=== PATIENT | female | born 1930 | race Caucasian/White ===

== ENCOUNTER → 2016-10-17 | Day surgery (SDC) | payer OTHER ==
[~2016-10-17] MED LIST: ACETAMINOPHEN/HYDROcodone 325 MG/5 MG TAB ONE; ALPR.25 PO; BUPIVACAINE/EPINEPHRINE 0.25% 50 ML VIAL ONE; BUPIVACAINE/EPINEPHRINE 0.25% PF 30 ML VIAL ONE; DONE10TA14; IBUP400 PO; KETOROLAC TROMETHAMINE 30 MG/ML (IVP) VIAL IV PUSH ONE; LACTATED RINGER'S 1000 ML INJ 1,000 ML ONE; LEVO.025 PO; MECL-62 PO; MECL25 PO; ONDANSETRON HCL 4 MG/2 ML VIAL IV PUSH ONE; PROPOFOL 200 MG/20 ML AMP IV ONE; ceFAZolin 2 GM PREMIX 50 ML ONE
--- NOTE | 2016-10-18 09:03 | MP ---
cc: OMARI GENTILE M.D. DATE OF SURGERY: 10/17/2016 PREOPERATIVE DIAGNOSIS Right hip painful retained internal fixation, three large Synthes cannulated screws. POSTOPERATIVE DIAGNOSIS Right hip painful retained internal fixation, three large Synthes cannulated screws. PROCEDURE Right hip exploration and removal of three large cannulated screws using direct visualization and fluoroscopy. ANESTHESIA General. SURGEON Omari Gentile MD DRYING CAN WORKER SURGEON AFRICA Shearer ESTIMATED BLOOD LOSS Less than 50 cc. DRAINS None. SPECIMENS Screws to be cleaned and given to the patient. COMPLICATIONS None known. INDICATION Jessica Sullivan as an 86-year-old female who previously underwent surgical repair of her right hip. She has lateral based hip pain which is believed to be secondary to the retained internal fixation which are prominent by probably up to 1/2 inch. Surgical technique described, risks and benefits thoroughly discussed. All of her questions were answered. Detailed informed consent was obtained. DETAILS OF PROCEDURE The patient was brought into the operating room, placed under general anesthetic. She was turned 30 degrees with a bump under her right shoulder blade and right hip. The right hip was draped and prepped in the usual sterile fashion. We completed our timeout. It should be noted that the periodontal assistant, Paulo Rivero, is an advanced registered nurse practitioner, and his skill set was medically necessary for the performance of the operation. He assisted by retracting vital structures and retracting the fascia to allow for visualization of the screws and removal of these complex screws. After the timeout was completed, we proceeded with fluoroscopic evaluation to see if the incision lined up with the screws and we used the top half of the incision, approximately 4 cm in length, and then proceeded to traverse using meticulous hemostasis with electrocautery all the way down to the fascial layer. We had good visualization of the fascia. We palpated directly over the most prominent screw and then traversed the fascial layer and then identified the screw head and used the cannulated guidewire and then the screwdriver over this with fluoroscopic guidance to remove this screw. In a similar fashion we turned the internal and external rotation of the hip until we were able to identify the next screw head and retracted the fascia out of the way until we were able to visualize and place the guide pin down the screw and then remove this screw. There was no significant fluid identified with removal of this. Then we opened the fascia layer and abducted the hip somewhat to gain access to the third screw and then removed this screw in a similar fashion and made a hard copy of the hip showing the final result. We then irrigated out with copious amounts of irrigation and proceeded to close the fascial layer and then proceeded to closed in layers with absorbable sutures, subcuticular on the skin. Steri-Strips applied. Sterile dressing applied. The patient was awoken and returned to the recovery room in stable condition. MD ANAYELI Doyle/LEILA /12:43 PM /8:56 AM
== END | disposition home or self-care (01) ==
LOC: ESDC 09:58
PROVIDERS: ATTEND Orthopaedic Surgery Sports Medicine
DX: T84.84XA Pain due to internal orthopedic prosthetic devices, implants and grafts, initial encounter (principal)
CPT/HCPCS: 01210; 20680; 73501; 76000; J0690; J1885; J2405; J3010; J7120

== ENCOUNTER 2018-01-30 04:15 | Emergency (ER) | payer OTHER ==
[~2018-01-30 04:15] MED LIST changes: -ACETAMINOPHEN/HYDROcodone 325 MG/5 MG TAB ONE; -BUPIVACAINE/EPINEPHRINE 0.25% 50 ML VIAL ONE; -BUPIVACAINE/EPINEPHRINE 0.25% PF 30 ML VIAL ONE; -KETOROLAC TROMETHAMINE 30 MG/ML (IVP) VIAL IV PUSH ONE; -LACTATED RINGER'S 1000 ML INJ 1,000 ML ONE; -ONDANSETRON HCL 4 MG/2 ML VIAL IV PUSH ONE; -PROPOFOL 200 MG/20 ML AMP IV ONE; -ceFAZolin 2 GM PREMIX 50 ML ONE
[2018-01-30 04:24] VITALS: PULSE 92; RESP 16; O2SAT 97
[2018-01-30] MEDS ORDERED: LORazepam 2 MG/ML VIAL IV PUSH ONE (04:30)
[2018-01-30] MEDS ORDERED: ONDANSETRON HCL 4 MG/2 ML VIAL IV PUSH ONE (04:30)
[2018-01-30] MEDS ORDERED: SODIUM CHLOR 0.9% 1000 ML INJ 1,000 ML IV SCH (04:30)
--- NOTE | 2018-01-30 04:32 | PD ---
HPI Chief Complaint: Chest Pain Time Seen by Provider: 04:24 Travel History International Travel<30 days: No Contact w/Intl Traveler<30days: No Traveled to known affect area: No History of Present Illness HPI 87 years old female was brought in by her daughter for nausea vomiting coughing congestion. Patient's daughter states that the symptoms started 2 days ago. Patient's daughters state that the symptom worse tonight. Patient has history of dementia. Patient's daughter reported no fever at home. Patient's daughter states that she has intermittent productive cough and intermittent nausea vomiting. Patient occasionally complained of left-sided chest wall pain. Patient reported no history of hypertension, diabetes, hyperlipidemia. Patient' s daughter states that patient does not have any history of CAD. PFSH Past Medical History Hx Anticoagulant Therapy: No Cancer: No Cardiovascular Problems: No Chemotherapy: No Cerebrovascular Accident: No Diabetes: No Diminished Hearing: Yes Endocrine: Yes Genitourinary: No Immune Disorder: No Musculoskeletal: No Neurologic: No Reproductive: No Respiratory: No Immunizations Current: No Sickle Cell Disease: No Thyroid Disease: Yes (HYPOTHYROIDISM) : 3 Para: 3 Past Surgical History Hysterectomy: Yes Other Surgery: Yes (Bunionectomy) Social History Alcohol Use: No Tobacco Use: No Substance Use: No Allergies-Medications (Allergen,Severity, Reaction): Coded Allergies: No Known Allergies (Verified Adverse Reaction, Unknown, 01/30/18) Reported Meds & Prescriptions Reported Meds & Active Scripts Active Reported Ventolin Hfa 18 GM Inh (Albuterol Sulfate) 90 Mcg/Act Aer 1 Puff INH Q4H PRN Hydrocodone-Acetaminophen 5-325 mg Tab 1 Tab PO Q4H PRN Meclizine (Meclizine HCl) 12.5 Mg Tab 12.5 Mg PO TID PRN Donepezil 10 Mg Tab 10 Mg PO HS Levothyroxine (Levothyroxine Sodium) 75 Mcg Tab 75 Mcg PO DAILY Zoloft (Sertraline HCl) 50 Mg Tab 50 Mg PO DAILY Review of Systems General / Constitutional: No: Fever Eyes: No: Visual changes HENT: Positive: Congestion, No: Headaches Cardiovascular: No: Chest Pain or Discomfort Respiratory: Positive: Cough, No: Shortness of Breath Gastrointestinal: Positive: Nausea, Vomiting, No: Abdominal Pain Genitourinary: No: Dysuria Musculoskeletal: No: Pain Skin: No Rash Neurologic: No: Weakness Psychiatric: No: Depression Endocrine: No: Polydipsia Hematologic/Lymphatic: No: Easy Bruising Physical Exam Narrative GENERAL: Well-nourished, well-developed patient. SKIN: Focused skin assessment warm/dry. HEAD: Normocephalic. EYES: No scleral icterus. No injection or drainage. NECK: Supple, trachea midline. No JVD or lymphadenopathy. CARDIOVASCULAR: Regular rate and rhythm without murmurs, gallops, or rubs. RESPIRATORY: Breath sounds equal bilaterally. No accessory muscle use. GASTROINTESTINAL: Abdomen soft, non-tender, nondistended. MUSCULOSKELETAL: No cyanosis, or edema. BACK: Nontender without obvious deformity. No CVA tenderness. Neurologic exam: Patient is awake and alert. Patient is agitated. Patient moves all extremity well. No obvious focal neurological deficit. Data Data Last Documented VS Vital Signs Date Time Temp Pulse Resp B/P (MAP) Pulse Ox O2 Delivery O2 Flow Rate FiO2 01/30/18 04:44 98 Room Air 01/30/18 04:43 78 16 Orders Orders Electrocardiogram (01/30/18 04:24) Complete Blood Count With Diff (01/30/18 04:24) Comprehensive Metabolic Panel (01/30/18 04:24) B-Type Natriuretic Peptide (01/30/18 04:24) Prothrombin Time / Inr (Pt) (01/30/18 04:24) Act Partial Throm Time (Ptt) (01/30/18 04:24) Urinalysis - C+S If Indicated (01/30/18 04:24) Thyroid Stimulating Hormone (01/30/18 04:24) Influenzae A/B Antigen (01/30/18 04:24) Chest, Single Ap (01/30/18 04:24) Iv Access Insert/Monitor (01/30/18 04:24) Ecg Monitoring (01/30/18 04:24) Oximetry (01/30/18 04:24) Lorazepam Inj (Ativan Inj) (01/30/18 04:30) Ondansetron Inj (Zofran Inj) (01/30/18 04:30) Sodium Chlor 0.9% 1000 Ml Inj (Ns 1000 M (01/30/18 04:30) Creatine Kinase (Cpk) (01/30/18 04:29) Troponin I (01/30/18 04:29) Ed Discharge Order (01/30/18 06:10) Labs Laboratory Tests Test 01/30/18 04:30 01/30/18 05:30 White Blood Count 7.8 TH/MM3 Red Blood Count 4.87 MIL/MM3 Hemoglobin 14.8 GM/DL Hematocrit 43.7 % Mean Corpuscular Volume 89.7 FL Mean Corpuscular Hemoglobin 30.4 PG Mean Corpuscular Hemoglobin Concent 33.9 % Red Cell Distribution Width 14.2 % Platelet Count 200 TH/MM3 Mean Platelet Volume 8.1 FL Neutrophils (%) (Auto) 56.0 % Lymphocytes (%) (Auto) 33.4 % Monocytes (%) (Auto) 8.4 % Eosinophils (%) (Auto) 1.1 % Basophils (%) (Auto) 1.1 % Neutrophils # (Auto) 4.4 TH/MM3 Lymphocytes # (Auto) 2.6 TH/MM3 Monocytes # (Auto) 0.7 TH/MM3 Eosinophils # (Auto) 0.1 TH/MM3 Basophils # (Auto) 0.1 TH/MM3 CBC Comment DIFF FINAL Differential Comment Prothrombin Time 10.3 SEC Prothromb Time International Ratio 1.0 RATIO Activated Partial Thromboplast Time 23.2 SEC Blood Urea Nitrogen 17 MG/DL Creatinine 1.02 MG/DL Random Glucose 102 MG/DL Total Protein 8.0 GM/DL Albumin 4.0 GM/DL Calcium Level 9.6 MG/DL Alkaline Phosphatase 79 U/L Aspartate Amino Transf (AST/SGOT) 26 U/L Alanine Aminotransferase (ALT/SGPT) 25 U/L Total Bilirubin 0.4 MG/DL Sodium Level 140 MEQ/L Potassium Level 3.3 MEQ/L Chloride Level 103 MEQ/L Carbon Dioxide Level 24.4 MEQ/L Anion Gap 13 MEQ/L Estimat Glomerular Filtration Rate 51 ML/MIN Total Creatine Kinase 123 U/L Troponin I LESS THAN 0.02 NG/ML B-Type Natriuretic Peptide 50 PG/ML Thyroid Stimulating Hormone 3rd Gen 1.260 uIU/ML Urine Color LIGHT-YELLOW Urine Turbidity CLEAR Urine pH 8.0 Urine Specific [place] 1.008 Urine Protein TRACE mg/dL Urine Glucose (UA) NEG mg/dL Urine Ketones 40 mg/dL Urine Occult Blood NEG Urine Nitrite NEG Urine Bilirubin NEG Urine Urobilinogen LESS THAN 2.0 MG/DL Urine Leukocyte Esterase NEG Urine RBC 1 /hpf Urine WBC LESS THAN 1 /hpf Microscopic Urinalysis Comment CULT NOT INDICATED MDM Medical Decision Making Medical Screen Exam Complete: Yes Emergency Medical Condition: Yes Interpretation(s) 5:45 AM. EKG shows sinus rhythm nonspecific ST-T wave change. Last Impressions Chest X-Ray 01/30/18 0424 Signed Impressions: Service Date/Time: Tuesday, January 30, 2018 04:46 - CONCLUSION: 1. Large hernia in the lower chest containing bowel. Findings similar to 2015. No acute infiltrate. Allan Grande MD 5:45 AM. CBC within normal limits. Potassium 3.3. Creatinine 1.02. GFR 51. Cardiac enzymes are normal. UA is negative. Differential Diagnosis Differential diagnosis including viral syndrome, gastroenteritis, dehydration, electrolyte imbalance, chest wall pain, pneumonia, NC. Narrative Course 87 years old female was brought in by her daughter for coughing congestion, nausea vomiting. Normal saline solution 100 cc an hour. Ativan 1 mg IV. Zofran 4 mg IV. Diagnosis Primary Impression: Viral syndrome Patient Instructions: General Instructions Additional Instructions: Zofran as needed for nausea vomiting. Tylenol as needed for aching pain. Follow-up with personal physician. Return if worse. Med/Other Pt SpecificInfo: Prescription(s) given Scripts Ondansetron Odt (Zofran Odt) 4 Mg Tab 4 MG SL Q6HR Y for Nausea/Vomiting, #10 TAB 0 Refills Prov: Len Santoyo MD 01/30/18 Disposition: 01 DISCHARGE HOME Condition: Stable Len Santoyo MD Jan 30, 2018 04:32
[2018-01-30] MEDS ORDERED: HYDR-3516 PO (04:41)
[2018-01-30] MEDS ORDERED: LEVO75TA3 PO (04:41)
[2018-01-30] MEDS ORDERED: MECL12.574 PO (04:41)
[2018-01-30] MEDS ORDERED: ZOLO50TA PO (04:41)
[2018-01-30] MEDS ORDERED: DONE10TA7 PO (04:41)
[2018-01-30 04:42] LABS: AUTOMATED NEUTROPHIL # 4.4 TH/MM3 (1.8-7.7); BASOPHIL # 0.1 TH/MM3 (0-0.2); BASOPHIL % 1.1 % (0.0-2.0); EOSINOPHIL # 0.1 TH/MM3 (0-0.4); EOSINOPHIL % 1.1 % (0.0-4.0); HEMATOCRIT 43.7 % (35.0-46.0); HEMOGLOBIN 14.8 GM/DL (11.6-15.3); LYMPH % 33.4 % (9.0-44.0); LYMPHOCYTE # 2.6 TH/MM3 (1.0-4.8); MEAN CELL VOLUME 89.7 FL (80.0-100.0); MEAN CORPUSCULAR HEMOGLOBIN 30.4 PG (27.0-34.0); MEAN CORPUSCULAR HGB CONC 33.9 % (32.0-36.0); MEAN PLATELET VOLUME 8.1 FL (7.0-11.0); MONO % 8.4 % (0.0-8.0); MONOCYTE # 0.7 TH/MM3 (0-0.9); PLATELET COUNT 200 TH/MM3 (150-450); RED BLOOD COUNT 4.87 MIL/MM3 (4.00-5.30); RED CELL DISTRIBUTION WIDTH 14.2 % (11.6-17.2); WHITE BLOOD COUNT 7.8 TH/MM3 (4.0-11.0)
[2018-01-30] MEDS ORDERED: VENTAER INH (04:42)
[2018-01-30 04:43] VITALS: BP 180/79; PULSE 78; RESP 16; O2SAT 98
[2018-01-30 04:44] VITALS: O2SAT 98
[2018-01-30 04:58] LABS: PROTHROMBIN TIME - PATIENT 10.3 SEC (9.8-11.6)
[2018-01-30 05:00] LABS: TROPONIN I LESS THAN 0.02 NG/ML (0.02-0.05)
--- NOTE | 2018-01-30 05:02 | RADRPT ---
EXAM DATE/TIME: 01/30/2018 04:46 [facility] COMPARISON: CHEST SINGLE AP, January 30, 2015, 22:47. INDICATIONS : Short of breath. MEDICAL HISTORY : None. SURGICAL HISTORY : None. ENCOUNTER: Initial ACUITY: 1 day PAIN SCORE: 0/10 LOCATION: Bilateral chest FINDINGS: A single view of the chest demonstrates persistent large hernia in the lower chest. Probable compress randy atelectasis on the left side. Right lung clear. No pneumothorax. CONCLUSION: 1. Large hernia in the lower chest containing bowel. Findings similar to 2014. No acute infiltrate. Allan Grande MD on January 30, 2018 at 4:59 Board Certified Radiologist. This report was verified electronically.
[2018-01-30 05:08] LABS: ALKALINE PHOSPHATASE 79 U/L (45-117); TOTAL BILIRUBIN ADULT 0.4 MG/DL (0.2-1.0)
[2018-01-30 05:15] LABS: ALT (GPT) 25 U/L (10-53); AST (GOT) 26 U/L (15-37); BICARBONATE 24.4 MEQ/L (21.0-32.0); BLOOD UREA NITROGEN 17 MG/DL (7-18); CALCIUM 9.6 MG/DL (8.5-10.1); CHLORIDE 103 MEQ/L (98-107); CREATININE 1.02 MG/DL (0.50-1.00); GLOMERULAR FILTRATION RATE 51 ML/MIN (>89); GLUCOSE,RANDOM 102 MG/DL (74-106); SODIUM (NA) 140 MEQ/L (136-145)
[2018-01-30 05:37] LABS: BILIRUBIN, URINE NEG (NEG); BLOOD, URINE NEG (NEG); GLUCOSE,URINE NEG (NEG); KETONE, URINE 40 mg/dL (NEG); NITRITE,URINE NEG (NEG); URINE COLOR LIGHT-YELLOW (YELLW/STRAW); URINE LEUKOCYTE ESTERASE NEG (NEG)
[2018-01-30] MEDS ORDERED: ZOFR4TAB3 SL (06:11)
--- NOTE | 2018-01-30 08:22 | EKG ---
Date Performed: 01/30/2018 Time Performed: 04:39:45 PTAGE: 87 years EKG: Sinus rhythm POSSIBLE LEFT ATRIAL ENLARGEMENT LEFT AXIS DEVIATION NONSPECIFIC HIGH LATERAL T WAVE ABNORMALITY ABN ORMAL ECG PREVIOUS TRACING : 07/17/2015 22.13 No significant change from previous tracing noted. DOCTOR: Audi Kirkpatrick Interpretating Date/Time 01/30/2018 08:21:27
== END 2018-01-30 06:43 | disposition home or self-care (01) ==
LOC: NEPC 04:15
DX: B34.9 Viral infection, unspecified (principal); E03.9 Hypothyroidism, unspecified
CPT/HCPCS: 71045; 80053; 81001; 82550; 83880; 84443; 84484; 85025; 85610; 85730; 87804; 93005; 96374; 96375; 99285; J2060; J2405; J7030

== ENCOUNTER 2018-10-19 12:40 | Observation (INO) ==
--- NOTE | 2018-10-19 13:12 | ED ---
HPI General Chief Complaint: Extremity Injury, Lower Stated Complaint: hip pain Time Seen by Provider: 10/19/18 13:02 Source: patient and family (daughter at bedside) History of Present Illness HPI Narrative: Patient is an 88-year-old female who presents to the emergency room with her daughter with complaints of right-sided hip pain. Patient reports that she has had a surgery in her right hip in the past by Dr. Neville after she suffered a hip fracture in 2014. Reports that she was getting out of bed today when she felt a pop to her right hip. Reports that she was able to get of bed and use the bathroom but reports pains to her right hip. Denies any fall or any other trauma. NO other complaints. Related Data Home Medications Medication Instructions Recorded Confirmed acetaminophen-codeine 1 tab PO Q6H 10/19/18 10/19/18 donepezil [Aricept] 10 mg PO DAILY 10/19/18 10/19/18 fluticasone-vilanterol [Breo 1 inh INHALATION DAILY 10/19/18 10/19/18 Ellipta] gabapentin 300 mg PO HS 10/19/18 10/19/18 mirtazapine 15 mg PO DAILY 10/19/18 10/19/18 quetiapine 25 mg PO DAILY 10/19/18 10/19/18 sertraline [Zoloft] 50 mg PO DAILY 10/19/18 10/19/18 Allergies Allergy/AdvReac Type Severity Reaction Status Date / Time No Known Allergies Allergy Verified 10/19/18 14:41 Review of Systems ROS: all other systems reviewed are negative [facility] Medical History Medical History Anxiety (Acute) COPD (chronic obstructive pulmonary disease) (Acute) Chronic kidney disease (Acute) Dementia (Acute) History of hysterectomy (Acute) Hyperlipidemia (Acute) Vertigo (Acute) Surgical History Surgical History History of hip surgery (Acute) Family History Family History Other Patient denies significant medical history Social History Social History Substance History: No History of Abuse Second Hand Smoke Exposure: No Smoking Status: Never smoker Tobacco Type: Cigarettes How Often Do You Have a Drink Containing Alcohol: Never Recent Travel in [facility] within the Last 8 Weeks: No Recent Out of Country Travel within the Last 8 Weeks: No Immunization History Tetanus Immunization: >5 Years Exam Narrative Exam Narrative: GENERAL: patient is pleasantly demented SKIN: Focused skin assessment warm/dry. HEAD: Atraumatic. Normocephalic. EYES: Pupils equal and round. No scleral icterus. No injection or drainage. ENT: No nasal bleeding or discharge. Mucous membranes pink and moist. NECK: Trachea midline. No JVD. CARDIOVASCULAR: Regular rate and rhythm. No murmur appreciated. RESPIRATORY: No accessory muscle use. Clear to auscultation. Breath sounds equal bilaterally. GASTROINTESTINAL: Abdomen soft, non-tender, nondistended. Hepatic and splenic margins not palpable. MUSCULOSKELETAL: No obvious deformities. No clubbing. No cyanosis. No edema. Patient with normal ROM to left hip - pain with ROM to right hip. NEUROLOGICAL: Awake and alert. No obvious cranial nerve deficits. Motor grossly within normal limits. Normal speech. PSYCHIATRIC: Appropriate mood and affect; insight and judgment normal. Course Initial Documented Vital Signs Temperature 97.1 F L 10/19/18 12:43 Pulse Rate 74 10/19/18 12:43 Respiratory Rate 20 10/19/18 12:43 Pulse Oximetry 97 10/19/18 12:43 Last Documented Vital Signs Temperature 98.3 F 10/19/18 20:00 Pulse Rate 80 10/19/18 20:00 Respiratory Rate 16 10/19/18 20:00 Blood Pressure 146/67 H 10/19/18 20:00 Pulse Oximetry 99 10/19/18 20:00 Medical Decision Making [facility] Narrative Medical decision making narrative: Xray of hip was ordered with a questionable fracture, CT ordered for further evaluation. This patient was seen as part of the RMA process with my attending, Dr. Ramirez. Reviewed the CT hip with the patient. She states that this injury was nontraumatic and that she was getting out of bed when she felt a pop in her right hip. She has seen Dr. Castro before where she was diagnosed with a hip fracture and foot injury. This was in 2015. She does have history of depression, hypothyroidism, early dementia, COPD. She follows Dr. Hannah. She denies the use of blood thinners. We will discuss his case with Dr. Kincaid , on-call orthopedics for further guidance. I spoke with Dr. Kincaid about this patient and she said he would evaluate her and make a determination for treatment. He states that patient opted for a cortisone treatment initially. We attempted to contact IR for the injection today however, the radiologists are off site currently. Likely plan for tomorrow morning. Patient is not ambulatory at this time. She does have a friend who is able to assist her however, states she would on be unable to help her with her ADLs. Pt would not be appropriate for discharge at this time. I spoke to Dr. Magaña who agreed to the admission. At this time, I will not order labs as I do not believe is necessary for her care here in the emergency department. Medical Screen Exam Complete: Yes Emergency Medical Condition: Yes Differential Diagnosis Differential Diagnosis: hip fracture vs strain Lab Data Lab Results 10/19/18 Range/Units 18:47 POC Glucose 74 (68-110) mg/dl Imaging Data Radiologist's impression: Hip X-Ray 10/19/18 13:11 CONCLUSION: 1. 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 2. Mixed lytic and sclerotic areas are identified throughout the right femoral head suggesting possible osteonecrosis. 3. Cortical irregularity involving the superior aspect of the femoral head which may represent underlying fracture. Hip CT 10/19/18 14:29 CONCLUSION: 1. Subchondral bony collapse of portions of the right femoral head. 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 2. Degenerative change in the right hip. Discharge Plan Discharge Disposition Patient Disposition: ED Admit(ED Internal Use Only) Discharge Condition Condition: Stable Discharge Order Discharge Orders: ED Use Only Admit Order (Routine); Ordered 10/19/18 Ordered By: Ame Valenzuela Discharge Details Diagnosis: Avascular necrosis, Inability to ambulate due to hip Physicians Team ED Provider: Qing Ramirez ED Midlevel Provider: Ame Valenzuela Primary Care Provider: UNKNOWN, Attending Provider: Dewayne Magaña Status ED Status: Left Department Discharge Information Discharge Date/Time: 10/19/18 19:18
--- NOTE | 2018-10-19 14:11 | XR ---
EXAM DATE: 10/19/2018 1:53 PM EST AGE/SEX: 88 years / Female INDICATIONS: [place] a "pop" in her right hip this morning. CLINICAL DATA: This is the patient's initial encounter. Patient reports that signs and symptoms have been present for 1 day and indicates a pain score of Nonresponsive. MEDICAL/SURGICAL HISTORY: Dementia. Chronic obstructive pulmonary disease. . right hip COMPARISON: [facility], XR PELVIS AP, 08/30/2016. . 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 Mixed lytic and sclerotic areas are jorgito ntified throughout the right femoral head suggesting possible osteonecrosis. There is cortical irregu larity involving the superior aspect of the femoral head which may represent underlying fracture. CONCLUSION: 1. 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 2. Mixed lytic and sclerotic areas are identified throughout the right femoral head suggesting possi ble osteonecrosis. 3. Cortical irregularity involving the superior aspect of the femoral head which may represent under lying fracture. Electronically signed by: Lee Cortez MD Board Certified Radiologist 10/19/2018 2:10 PM EST
--- NOTE | 2018-10-19 16:19 | CT ---
EXAM DATE: 10/19/2018 4:05 PM EST AGE/SEX: 88 years / Female INDICATIONS: Right hip pain. Patient states she felt a pop in her right hip this morning getting out of bed. The patient has a history of prior subcapital right hip fracture with placement of trochante amparo nails with later removal. CLINICAL DATA: This is the patient's initial encounter. Patient reports that signs and symptoms have been present for 1 day and indicates a pain score of 6/10. MEDICAL/SURGICAL HISTORY: Chronic obstructive pulmonary disease. Dementia. Hysterectomy. RADIATION DOSE: 9.28 CTDI (mGy) COMPARISON: [facility] [place], HIP RIGHT 2V, 10/19/2018. . TECHNIQUE: Multiple contiguous axial images were acquired using a multirow detector CT scanner witho ut contrast. Multiplanar reconstruction was performed in the sagittal and coronal planes. Using aut omated exposure control and adjustment of the mA and/or kV according to patient size, radiation dose was kept as low as reasonably achievable to obtain optimal diagnostic quality images. DICOM format i mage data is available electronically for review and comparison. FINDINGS: The acetabulum and pubic rami are intact. The right femoral head and neck are abnormal in appearance with mixed sclerotic and lucent regions typical of avascular necrosis. On the coronal MPR images sev eral of the lucent areas correspond to prior trochanteric nail tracts. There is subchondral bony pablo apse of portions of the femoral head. There is an old fracture deformity of the femoral neck with for eshortening. There is degenerative change in the joint with joint space loss and hypertrophic changes . The soft tissues appear unremarkable. CONCLUSION: 1. Subchondral bony collapse of portions of the right femoral head. There is underlying avascular ne crosis, old fracture deformity and postsurgical change. 2. Degenerative change in the right hip. Electronically signed by: Dewayne Narayan MD Board Certified Radiologist 10/19/2018 4:17 PM EST
--- NOTE | 2018-10-19 17:33 | P.CONOP ---
[facility] Orthopedics Consult Note - [facility] Consult date: 10/19/18 Chief complaint: hip pain Narrative: This patient is an 88-year-old female who is currently in the [place] emergency room with complaints of significant right hip pain. Patient states that she had a motion when she was trying to get out of bed today and felt a pop about the right hip which caused significant amount of pain and inability to ambulate. The patient has a significant history of issues with this right hip in the past. She had seen Dr. Scott and underwent a percutaneous screw fixation of her right hip in 2014. 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 I was able to review x-rays from our office from that time which showed that she did have some minor evidence of avascular necrosis but still had a fairly intact joint space. The patient when she presented to the hospital today was found to have severe osteoarthritis along with collapse of some of the femoral head and significant cystic formation. There was concern for fracture around the femoral head due to this and I was consulted. It is hard to get a very good history as far as what her level of pain is in her ambulatory status because she does have dementia. She does have her daughter at the bedside who says that she has been complaining of problems with his right hip for quite a long time but then this popped this morning significantly exacerbated the pain. Review of Systems unobtainable due to mental status PMFSH - History History Provided By: Patient, Family Member - Medical History Medical History: Medical History (Last Reviewed 10/19/18 @ 17:29 by Matthew Kirkland MD) Anxiety COPD (chronic obstructive pulmonary disease) Dementia History of hysterectomy - Surgical History Surgical History: Surgical History (Last Reviewed 10/19/18 @ 17:29 by Matthew Kirkland MD) History of hip surgery - Social History I have reviewed the patient's Social History: Yes - Tobacco History Second Hand Smoke Exposure: No Tobacco Use In Past 30 Days: No Smoking Status: Never smoker Tobacco Type: Cigarettes - Alcohol History How Often Do You Have a Drink Containing Alcohol: Never - Substance Use History Substance History: No History of Abuse - Travel History Recent Travel Out of the Country Within the Last 8 Weeks: No - Immunization History Tetanus Immunization: >5 Years Medications and Allergies Allergies Allergy/AdvReac Type Severity Reaction Status Date / Time No Known Allergies Allergy Verified 10/19/18 14:41 Home Medications Medication Instructions Recorded Confirmed Type acetaminophen-codeine 1 tab PO Q6H 10/19/18 10/19/18 History donepezil [Aricept] 10 mg PO DAILY 10/19/18 10/19/18 History fluticasone-vilanterol [Breo 1 inh INHALATION DAILY 10/19/18 10/19/18 History Ellipta] gabapentin 300 mg PO HS 10/19/18 10/19/18 History mirtazapine 15 mg PO DAILY 10/19/18 10/19/18 History quetiapine 25 mg PO DAILY 10/19/18 10/19/18 History sertraline [Zoloft] 50 mg PO DAILY 10/19/18 10/19/18 History Exam Vital signs: Vital Signs 10/19/18 12:43 10/19/18 15:00 Temperature 97.1 F L Pulse Rate 74 78 Respiratory Rate 20 16 Blood Pressure 132/78 Pulse Oximetry 97 99 Intake & Output 10/18/18 10/19/18 10/19/18 18:59 06:59 18:59 Weight 52.617 kg Narrative: GENERAL: The patient is awake, alert but does show signs of dementia. She does have distress due to pain about the right hip. Her daughter is at the bedside. PSYCHIATRIC: She does show some signs of dementia. She is somewhat anxious. HEENT: Head is atraumatic. Oropharynx is moist. Extraocular muscles are intact. NECK: Non-tender and supple. LUNGS: No audible wheezing. He has normal inspiratory effort with no signs of dyspnea HEART: Regular rate and rhythm. ABDOMEN: Soft, nontender, and nondistended. BACK: No CVA tenderness. EXTREMITIES/SKIN/NEURO/VASCULAR: The right hip has a well-healed lateral incision. There is no redness or drainage. There is no fluctuance. She has pain with motion about the right hip. She can actively move the toes and she does have brisk capillary refill about the lower extremity. She does not have significant swelling noted about the right lower extremity. Results - Diagnostic results Imaging: Impressions Hip X-Ray 10/19/18 13:11 CONCLUSION: 1. 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 2. Mixed lytic and sclerotic areas are identified throughout the right femoral head suggesting possible osteonecrosis. 3. Cortical irregularity involving the superior aspect of the femoral head which may represent underlying fracture. I have reviewed the images for this radiology study. I agree with the interpretation given by the radiologist. Hip CT 10/19/18 14:29 CONCLUSION: 1. Subchondral bony collapse of portions of the right femoral head. 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 2. Degenerative change in the right hip. I have reviewed the images for this radiology study. I agree with the interpretation given by the radiologist. Assessment and Plan - Assessment and Plan 88-year-old female who has severe osteoarthritis of the right hip with evidence of avascular necrosis and some fragmentation of the femoral head, status post previous percutaneous screw fixation with removal of screws early 2016. As discussed earlier in my notes, this patient's arthritis and avascular necrosis has progressed compared to her x-rays in October 2016. I talked extensively as far as treatment options with the patient's daughter. At this point she seems to painful to be able to be discharged home. We have decided to move forward with conservative management and I have ordered a right hip fluoroscopic guided intra-articular injection to see how she does with this. If ultimately she does not have significant improvement then we may want to consider hip replacement. I did offer the option of moving forward with hip replacement during this admission to the hospital. However there are significant risks associated with surgical management and at this point am not sure the patient totally understands these risks and benefits. I do feel that the daughter does understand the risks but she at this point is not committed to wanting to move forward with surgical management. The patient should follow-up with me as an outpatient and if she continues to be symptomatic despite the intra-articular injection then I could talk more with the family about the option moving forward with hip replacement surgery. At this point it is not absolutely necessary to move forward with urgent surgical management for the hip based on the imaging and history. - Attending Attestation Attending Attestation: A mid level provider in my office, nurse practitioner or PA, may see this patient on a follow up basis and continue to implement the plan including: starting or adjusting medications, injections of muscle, tendons, bursa or joints, cast application, orthotic or brace application, physical therapy, further radiographic studies including X-ray, MRI, CT, ultrasound or bone scan , vascular studies, neurological studies, or other specialist consultations, and proceeding with surgical management as appropriate.
[2018-10-19] MEDS ORDERED: Morphine Inj 4 MG/ML Vial IV.PUSH PRN (17:47)
[2018-10-19] MEDS ORDERED: ALPRAZolam 0.25 MG Tablet PO PRN (17:47)
[2018-10-19] MEDS ORDERED: Acetaminophen 325 MG Tablet PO PRN (17:48)
--- NOTE | 2018-10-19 17:58 | P.HPIM ---
History of Present Illness Primary Care Physician: UNKNOWN Chief Complaint: Hip pain History of Present Illness: The patient is an 88-year-old female with a past medical history significant for dementia, anxiety, COPD and femur fracture who is presenting to the hospital with significant right-sided lower extremity pain. She woke up this morning and sat up and all of a sudden felt a pop in her right hip. She then developed severe pain in her right hip and her right buttocks area that radiated down to her right ankle. She has been having a hard time walking following this incident. Her daughter lives with her and has been helping her ambulate. The patient has had previous hip surgery on that side after a fall in 2014 and has had some hardware removed as well. She normally ambulates with a cane. She does not report any recent falls. The patient does endorse dizziness for which she has an appointment scheduled with an ENT in the beginning of November. The patient denies any fevers. She has been taking Tylenol No. 4 at home and that has not been helping with her pain today. Review of Systems Review of Systems: all other systems reviewed are negative [facility] Medical History Medical History Anxiety (Acute) COPD (chronic obstructive pulmonary disease) (Acute) Chronic kidney disease (Acute) Dementia (Acute) History of hysterectomy (Acute) Hyperlipidemia (Acute) Vertigo (Acute) Surgical History Surgical History History of hip surgery (Acute) Family History Family History Other Patient denies significant medical history Social History Social History Substance History: No History of Abuse Second Hand Smoke Exposure: No Smoking Status: Never smoker Tobacco Type: Cigarettes How Often Do You Have a Drink Containing Alcohol: Never Recent Out of Country Travel within the Last 8 Weeks: No Immunization History Tetanus Immunization: >5 Years Medications and Allergies Allergies Allergy/AdvReac Type Severity Reaction Status Date / Time No Known Allergies Allergy Verified 10/19/18 14:41 Home Medications Medication Instructions Recorded Confirmed Type acetaminophen-codeine 1 tab PO Q6H 10/19/18 10/19/18 History donepezil [Aricept] 10 mg PO DAILY 10/19/18 10/19/18 History fluticasone-vilanterol [Breo 1 inh INHALATION DAILY 10/19/18 10/19/18 History Ellipta] gabapentin 300 mg PO HS 10/19/18 10/19/18 History mirtazapine 15 mg PO DAILY 10/19/18 10/19/18 History quetiapine 25 mg PO DAILY 10/19/18 10/19/18 History sertraline [Zoloft] 50 mg PO DAILY 10/19/18 10/19/18 History Active Medications: Active Medications Alprazolam (Xanax) 0.125 mg PO Q6H PRN PRN Reason: ANXIETY Fluticasone/Vilanterol (Breo Ellipta 100/25 Mcg Inh) puff INH DAILY ABDON Gabapentin (Neurontin) 300 mg PO HS ABDON Mirtazapine (Remeron) 15 mg PO DAILY [facility] Morphine Sulfate (Morphine Inj) 2 mg IV.PUSH Q4H PRN PRN Reason: SEVERE PAIN Non-Formulary Medication (Donepezil [Aricept]) 10 mg PO DAILY [facility] Quetiapine Fumarate (Seroquel) 25 mg PO DAILY ABDON Sertraline HCl (Zoloft) 50 mg PO DAILY [facility] Physical Exam Vital signs: Vital Signs 10/19/18 12:43 10/19/18 15:00 Temperature 97.1 F L Pulse Rate 74 78 Respiratory Rate 20 16 Blood Pressure 132/78 Pulse Oximetry 97 99 Intake & Output 10/18/18 10/19/18 10/19/18 18:59 06:59 18:59 Weight 52.617 kg Narrative: GENERAL: Anxious. SKIN: Focused skin assessment warm/dry. HEAD: Atraumatic. Normocephalic. EYES: Pupils equal and round. No scleral icterus. No injection or drainage. ENT: No nasal bleeding or discharge. Mucous membranes pink and moist. NECK: Trachea midline. No JVD. CARDIOVASCULAR: Tachycardic. No murmur appreciated. RESPIRATORY: No accessory muscle use. Clear to auscultation. Breath sounds equal bilaterally. GASTROINTESTINAL: Abdomen soft, non-tender, nondistended. Hepatic and splenic margins not palpable. MUSCULOSKELETAL: No obvious deformities. No clubbing. No cyanosis. No edema. Patient with normal ROM to left hip - pain with ROM and palpation to right hip. NEUROLOGICAL: Awake and alert. No obvious cranial nerve deficits. Motor grossly within normal limits. Normal speech. Results Imaging Impressions Hip X-Ray 10/19/18 13:11 CONCLUSION: 1. 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 2. Mixed lytic and sclerotic areas are identified throughout the right femoral head suggesting possible osteonecrosis. 3. Cortical irregularity involving the superior aspect of the femoral head which may represent underlying fracture. Hip CT 10/19/18 14:29 CONCLUSION: 1. Subchondral bony collapse of portions of the right femoral head. 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 2. Degenerative change in the right hip. Caprini VTE Risk Assessment Caprini VTE Risk Assessment: Moderate/High Risk (score >= 2) Caprini Risk Assessment Model: Point Value = 1 Point Value = 2 Point Value = 3 Point Value = 5 Age 41-60 Minor surgery BMI > 25 kg/m2 Swollen legs Varicose veins or History of unexplained or recurrent spontaneous Oral contraceptives or hormone replacement Sepsis (< 1 month) Serious lung disease, including pneumonia (< 1 month) Abnormal pulmonary function Acute myocardial infarction Congestive heart failure (< 1 month) History of inflammatory bowel disease Medical patient at bed rest Age 61-74 Arthroscopic surgery Major open surgery (> 45 min) Laparoscopic surgery (> 45 min) Malignancy Confined to bed (> 72 hours) Immobilizing plaster cast Central venous access Age >= 75 History of VTE Family history of VTE Factor V Leiden Prothrombin [id number] Lupus anticoagulant Anticardiolipin antibodies Elevated serum homocysteine Heparin-induced thrombocytopenia Other congenital or acquired thrombophilia Stroke (< 1 month) Elective arthroplasty Hip, pelvis, or leg fracture Acute spinal cord injury (< 1 month) Prophylaxis Regimen: Total Risk Factor Score Risk Level Prophylaxis Regimen 0-1 Low Early ambulation 2 Moderate Order ONE of the following: *Sequential Compression Device (SCD) *Heparin 5000 units SQ BID 3-4 Higher Order ONE of the following medications: *Heparin 5000 units SQ TID *Enoxaparin/Lovenox 40 mg SQ daily (WT < 150 kg, CrCl > 30 mL/min) *Enoxaparin/Lovenox 30 mg SQ daily (WT < 150 kg, CrCl > 10-29 mL/min) *Enoxaparin/Lovenox 30 mg SQ BID (WT < 150 kg, CrCl > 30 mL/min) AND/OR *Sequential Compression Device (SCD) 5 or more Highest Order ONE of the following medications: *Heparin 5000 units SQ TID (Preferred with Epidurals) *Enoxaparin/Lovenox 40 mg SQ daily (WT < 150 kg, CrCl > 30 mL/min) *Enoxaparin/Lovenox 30 mg SQ daily (WT < 150 kg, CrCl > 10-29 mL/min) *Enoxaparin/Lovenox 30 mg SQ BID (WT < 150 kg, CrCl > 30 mL/min) AND *Sequential Compression Device (SCD) Assessment and Plan Plan Severe right hip pain The pt has had prior surgery on that hip. 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 Orthopedic surgery consult appreciated. -intraarticular injection per ortho. Considering surgical repair if needed. -pain control as needed with a bowel regimen. -physical therapy. Anxiety Chronic. -continue home mirtazapine and sertraline. -add low dose Xanax. Vertigo Chronic. -outpt follow-up with ENT as scheduled. -PT. PPx: SCDs
[2018-10-19] MEDS ORDERED: Acetaminophen/Codeine 300/30 MG Tablet PO PRN (18:04)
[2018-10-19] MEDS: Gabapentin 300 MG Capsule PO SCH (21:30)
[2018-10-19] MEDS: Senna/Docusate Sodium 8.6/50 MG Tablet PO SCH (22:27)
[2018-10-20 08:39] LABS: Baso % (Auto) 0.8 % (0.0-2.0); Eos # (Auto) 0.1 th/mm3 (0.0-0.4); Eos % (Auto) 1.1 % (0.0-4.0); Hematocrit 39.9 % (35.0-46.0); Hemoglobin 13.4 gm/dL (11.6-15.3); Lymph # (Auto) 1.6 th/mm3 (1.0-4.8); Lymph % (Auto) 29.1 % (9.0-44.0); Mean Corpuscular HGB Conc 33.6 % (32.0-36.0); Mean Corpuscular Hemoglobin 30.3 pg (27.0-34.0); Mean Corpuscular Volume 90.2 fL (80.0-100.0); Mean Platelet Volume 8.7 fL (7.0-11.0); Mono # (Auto) 0.5 th/mm3 (0.0-0.9); Mono % (Auto) 8.6 % (0.0-8.0); Neut # (Auto) 3.2 th/mm3 (1.8-7.7); Neut % (Auto) 60.4 % (16.0-70.0); Platelet Count 167 th/mm3 (150-450); Red Blood Count 4.43 mil/mm3 (4.00-5.30); Red Cell Distribution Width 13.5 % (11.6-17.2); White Blood Count 5.4 th/mm3 (4.0-11.0)
[2018-10-20 09:09] LABS: Albumin 3.5 g/dL (3.4-5.0); Anion Gap 9 meq/L (5-15); Aspartate Aminotransferase 22 U/L (15-37); Blood Urea Nitrogen 19 mg/dL (7-18); Calcium 9.5 mg/dL (8.5-10.1); Carbon Dioxide 25.9 meq/L (21.0-32.0); Chloride 105 meq/L (98-107); Glomerular Filtration Rate 49 mL/min (>89); Glucose,Random 86 mg/dL (74-106); Potassium 4.2 meq/L (3.5-5.1); Sodium 140 meq/L (136-145)
[2018-10-20 09:14] LABS: Alanine Aminotransferase 25 U/L (10-53); Alkaline Phosphatase 89 U/L (45-117); Total Protein 7.4 g/dL (6.4-8.2)
[2018-10-20] MEDS: QUEtiapine 25 MG Tablet PO SCH (09:45)
[2018-10-20] MEDS: Sertraline 50 MG Tablet PO SCH (09:46)
[2018-10-20] MEDS: Mirtazapine 15 MG Tablet PO SCH (09:46)
[2018-10-20] MEDS: Senna/Docusate Sodium 8.6/50 MG Tablet PO SCH ×2 (09:46→21:15)
--- NOTE | 2018-10-20 11:24 | P.PNIM ---
Subjective Interval history: The patient was sitting up in a chair and was quite tired. She said her pain was a lot better today. She had no acute complaints. She was looking forward to going home. Discussed with nursing. Physical Exam Vital signs: Vital Signs 10/19/18 12:43 10/19/18 15:00 10/19/18 18:43 Temperature 97.1 F L Pulse Rate 74 78 62 Respiratory Rate 20 16 16 Blood Pressure 132/78 158/74 H Pulse Oximetry 97 99 10/19/18 20:00 10/19/18 23:46 10/20/18 03:47 Temperature 98.3 F 97.5 F L 98.3 F Pulse Rate 80 77 74 Respiratory Rate 16 16 12 Blood Pressure 146/67 H 149/70 H 113/57 L Pulse Oximetry 99 96 95 10/20/18 08:00 Temperature 97.7 F Pulse Rate 69 Respiratory Rate 18 Blood Pressure 110/58 L Pulse Oximetry 63 L Intake & Output 10/19/18 10/20/18 10/20/18 18:59 06:59 18:59 Intake Total 240 / 240 Balance 240 / 240 Weight 52.617 kg 52.617 kg Intake: Oral 240 / 240 Other: # Voids 1 Date of Last Bowel Movement 10/19/18 Weight On Admission 52.617 kg Narrative: GENERAL: Tired. SKIN: Focused skin assessment warm/dry. HEAD: Atraumatic. Normocephalic. EYES: Pupils equal and round. No scleral icterus. No injection or drainage. ENT: No nasal bleeding or discharge. Mucous membranes pink and moist. NECK: Trachea midline. No JVD. CARDIOVASCULAR: Regular rate and rhythm. No murmur appreciated. RESPIRATORY: No accessory muscle use. Clear to auscultation. Breath sounds equal bilaterally. GASTROINTESTINAL: Abdomen soft, non-tender, nondistended. Hepatic and splenic margins not palpable. MUSCULOSKELETAL: No obvious deformities. No clubbing. No cyanosis. No edema. Patient with normal ROM to left hip - pain with ROM and palpation to right hip. NEUROLOGICAL: Slightly lethargic. No obvious cranial nerve deficits. Motor grossly within normal limits. Normal speech. Results Labs CBC & Chem 7: 10/20/18 07:40 10/20/18 07:40 Imaging Imaging: Impressions Hip X-Ray 10/19/18 13:11 CONCLUSION: 1. 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 2. Mixed lytic and sclerotic areas are identified throughout the right femoral head suggesting possible osteonecrosis. 3. Cortical irregularity involving the superior aspect of the femoral head which may represent underlying fracture. Hip CT 10/19/18 14:29 CONCLUSION: 1. Subchondral bony collapse of portions of the right femoral head. 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 2. Degenerative change in the right hip. Assessment and Plan Plan Severe right hip pain The pt has had prior surgery on that hip. 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 Orthopedic surgery consult appreciated. -intraarticular injection per ortho scheduled for today. Considering surgical repair if needed. -pain control as needed with a bowel regimen. Tylenol #3 and morphine IV available. -physical therapy eval. Anxiety Chronic. -continue home mirtazapine and sertraline. Vertigo Chronic. -outpt follow-up with ENT as scheduled. -PT. PPx: SCDs Discharge Planning: Hopefully d/c with [facility] later today Progress Note: Quality VTE Deep Vein Thrombosis/Pulmonary Embolism Present on Admission: No
[2018-10-20] MEDS: Gabapentin 300 MG Capsule PO SCH (21:15)
[2018-10-21 09:12] VITALS: RESP 16
[2018-10-21] MEDS: Senna/Docusate Sodium 8.6/50 MG Tablet PO SCH ×2 (09:40→21:00)
[2018-10-21] MEDS: Sertraline 50 MG Tablet PO SCH (09:40)
[2018-10-21] MEDS: QUEtiapine 25 MG Tablet PO SCH (09:41)
[2018-10-21] MEDS: Mirtazapine 15 MG Tablet PO SCH (09:41)
--- NOTE | 2018-10-21 09:51 | P.PNIM ---
Subjective Interval history: The patient was awake and alert. She wanted the procedure over with so she can go home today. She had no acute complaints. She said she was getting weaker just laying in bed. She was trying to eat some breakfast. Discussed with nursing. Physical Exam Vital signs: Vital Signs 10/20/18 12:00 10/20/18 16:00 10/20/18 20:00 Temperature 97.4 F L 97.6 F 97.9 F Pulse Rate 67 65 76 Respiratory Rate 17 18 12 Blood Pressure 131/62 160/70 H 127/66 Pulse Oximetry 96 96 92 L 10/21/18 00:11 10/21/18 03:50 10/21/18 08:00 Temperature 97.6 F 97.8 F 97.6 F Pulse Rate 66 60 63 Respiratory Rate 12 12 16 Blood Pressure 133/63 181/82 H 117/67 Pulse Oximetry 95 96 98 Intake & Output 10/20/18 10/21/18 10/21/18 18:59 06:59 18:59 Intake Total 720 / 720 Balance 720 / 720 Intake: Oral 720 / 720 Other: # Voids 3 # Incontinent Voids 2 Date of Last Bowel Movement 10/19/18 10/21/18 Narrative: GENERAL: No distress. SKIN: Focused skin assessment warm/dry. HEAD: Atraumatic. Normocephalic. EYES: Pupils equal and round. No scleral icterus. No injection or drainage. ENT: No nasal bleeding or discharge. Mucous membranes pink and moist. NECK: Trachea midline. No JVD. CARDIOVASCULAR: Regular rate and rhythm. No murmur appreciated. RESPIRATORY: No accessory muscle use. Clear to auscultation. Breath sounds equal bilaterally. GASTROINTESTINAL: Abdomen soft, non-tender, nondistended. Hepatic and splenic margins not palpable. MUSCULOSKELETAL: No obvious deformities. No clubbing. No cyanosis. No edema. Patient with normal ROM to left hip - pain with ROM and palpation to right hip. NEUROLOGICAL: Awake and alert. No obvious cranial nerve deficits. Motor grossly within normal limits. Normal speech. Results Labs CBC & Chem 7: 10/20/18 07:40 10/20/18 07:40 Assessment and Plan Plan Severe right hip pain The pt has had prior surgery on that hip. 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 Orthopedic surgery consult appreciated. -intraarticular injection per ortho planned. Considering surgical repair if needed. -pain control as needed with a bowel regimen. Tylenol #3 as needed. -physical therapy eval. Rehab recommended. Anxiety Chronic. Improved. -continue home mirtazapine and sertraline. Vertigo Chronic. -outpt follow-up with ENT as scheduled. -PT. PPx: Heparin Discharge Planning: Hopefully d/c with [facility] later today Progress Note: Quality VTE Deep Vein Thrombosis/Pulmonary Embolism Present on Admission: No
[2018-10-21] MEDS: Heparin - SQ 10,000 UNITS/ML Vial SQ SCH ×3 (12:54→20:59)
[2018-10-21] MEDS: Gabapentin 300 MG Capsule PO SCH (20:59)
[2018-10-21] MEDS ORDERED: QUEtiapine 25 MG Tablet PO SCH (21:00)
[2018-10-21 22:29] VITALS: O2SAT 95
[2018-10-22 06:01] VITALS: BP 148/78; PULSE 69; TEMP 98.2
[2018-10-22] MEDS: Heparin - SQ 10,000 UNITS/ML Vial SQ SCH (06:04)
[2018-10-22] MEDS ORDERED: ROPIVACAINE ONE (08:53)
[2018-10-22] MEDS: Sertraline 50 MG Tablet PO SCH (09:27)
[2018-10-22] MEDS: Senna/Docusate Sodium 8.6/50 MG Tablet PO SCH (09:27)
[2018-10-22] MEDS: Mirtazapine 15 MG Tablet PO SCH (09:28)
--- NOTE | 2018-10-22 10:32 | P.DS ---
DS: Providers Date of admission: 10/19/18 17:45 Primary care physician: UNKNOWN Consults: 10/20/18 11:49 HUB Only Consult Order Routine Consulting Provider: Ambrose Boggs Anticipated date of discharge: 10/22/18 Brief History from admission: The patient is an 88-year-old female with a past medical history significant for dementia, anxiety, COPD and femur fracture who is presenting to the hospital with significant right-sided lower extremity pain. She woke up this morning and sat up and all of a sudden felt a pop in her right hip. She then developed severe pain in her right hip and her right buttocks area that radiated down to her right ankle. She has been having a hard time walking following this incident. Her daughter lives with her and has been helping her ambulate. The patient has had previous hip surgery on that side after a fall in 2014 and has had some hardware removed as well. She normally ambulates with a cane. She does not report any recent falls. The patient does endorse dizziness for which she has an appointment scheduled with an ENT in the beginning of November. The patient denies any fevers. She has been taking Tylenol No. 4 at home and that has not been helping with her pain today. Patient update on day of discharge: The patient had her joint injection this morning and was feeling well. Her daughter was at the bedside and they were hoping to go home today. No acute complaints. DS: Summary Severe right hip pain The pt has had prior surgery on the right hip. 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 Orthopedic surgery was consulted. Intraarticular injection per ortho/IR was performed on 10/22. The pt received pain control as needed with a bowel regimen. The pt worked with physical therapy who recommended rehab. The pt and her daughter wanted to go home without home health services. She will follow up with orthopedic surgery as an outpt. Anxiety We continued home mirtazapine and sertraline. Vertigo Chronic. She worked with PT. She has outpt follow-up with ENT scheduled. Time Spent with Patient Total time spent providing and/or coordinating discharge services: Less than 30 minutes Quality: VTE Deep Vein Thrombosis/Pulmonary Embolism Present on Admission: No Exam Narrative Exam Narrative: GENERAL: No distress. SKIN: Focused skin assessment warm/dry. HEAD: Atraumatic. Normocephalic. EYES: Pupils equal and round. No scleral icterus. No injection or drainage. ENT: No nasal bleeding or discharge. Mucous membranes pink and moist. NECK: Trachea midline. No JVD. CARDIOVASCULAR: Regular rate and rhythm. No murmur appreciated. RESPIRATORY: No accessory muscle use. Clear to auscultation. Breath sounds equal bilaterally. GASTROINTESTINAL: Abdomen soft, non-tender, nondistended. Hepatic and splenic margins not palpable. MUSCULOSKELETAL: No obvious deformities. No clubbing. No cyanosis. No edema. Patient with normal ROM to left hip - pain with ROM and palpation to right hip. NEUROLOGICAL: Awake and alert. No obvious cranial nerve deficits. Motor grossly within normal limits. Normal speech. Results Labs on day of discharge: Labs from last 24 hours 10/22/18 10/22/18 05:35 00:55 POC Glucose 98 91 Impressions ITS Impressions Hip X-Ray 10/19/18 13:11 CONCLUSION: 1. 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 2. Mixed lytic and sclerotic areas are identified throughout the right femoral head suggesting possible osteonecrosis. 3. Cortical irregularity involving the superior aspect of the femoral head which may represent underlying fracture. Hip CT 10/19/18 14:29 CONCLUSION: 1. Subchondral bony collapse of portions of the right femoral head. 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 2. Degenerative change in the right hip. Discharge Plan Discharge Disposition Patient Disposition: 01 Discharge Home Discharge Condition Condition: Stable Discharge Order Discharge Orders: Discharge Order (Routine); Ordered 10/22/18 Ordered By: Dewayne Magaña Discharge Details Anticipated Discharge Date: 10/22/18 Physicians Team ED Provider: Qing Ramirez ED Midlevel Provider: Ame Valenzuela Primary Care Provider: UNKNOWN, Attending Provider: Dewayne Magaña Other Providers: [employer] Rxs /Orders / Referrals /Forms Prescriptions: Continue quetiapine 25 mg Tablet 25 mg PO DAILY RF: 0 donepezil [Aricept] 10 mg Tablet 10 mg PO DAILY RF: 0 gabapentin 300 mg Capsule 300 mg PO HS RF: 0 mirtazapine 15 mg Tablet 15 mg PO DAILY RF: 0 sertraline [Zoloft] 50 mg Tablet 50 mg PO DAILY RF: 0 fluticasone-vilanterol [Breo Ellipta] 100-25 mcg/dose Blister With Device 1 inh INHALATION DAILY RF: 0 acetaminophen-codeine 300-60 mg Tablet 1 tab PO Q6H Qty: 12 RF: 0 Referrals: Matthew Kirkland MD [Physician] - See Instructions (1 week) UNKNOWN, [Primary Care Provider] - See Instructions Discharge Interventions Interventions: Discharge Planning - Case Management Last Done: 10/21/18 14:31 Status ED Status: Left Department
--- NOTE | 2018-10-22 11:38 | P.DCO ---
Diagnosis (1) Avascular necrosis: Status: Acute (2) Inability to ambulate due to hip: Status: Acute Physical Therapy Order: Evaluate and treat, Improve ambulation and Strength and gait training Home Health Nursing Order: Medical education, Signs/symptoms of disease process, Medication education-adverse effect and Nursing assessment with vital signs Case Management Consult Case Management Consult-Home Health: Yes I have seen patient Jessica Sullivan on 10/22/18. My clinical findings support the need for the requested home health care services because: Limited mobility due to disease progression, Limited ability to care for self, Impaired cognition/judgement and High risk of falls I certify that my clinical findings support that this patient is homebound because: Impaired cognitive ability/safety, Unsteady gait/balance and Unsafe to leave home unassisted
== END 2018-10-22 16:07 | disposition home health service (06) ==
LOC: NEDA 12:40 → NEPD 12:40 → NEDA 18:02 → NEPGCP 19:17
PROVIDERS: ADMIT Hospitalist; ATTEND Hospitalist
DX: Z91.81 History of falling; Z79.899 Other long term (current) drug therapy; Z87.81 Personal history of (healed) traumatic fracture; J44.9 Chronic obstructive pulmonary disease, unspecified; M87.00 Idiopathic aseptic necrosis of unspecified bone; F41.9 Anxiety disorder, unspecified; R42 Dizziness and giddiness; F17.210 Nicotine dependence, cigarettes, uncomplicated; M16.11 Unilateral primary osteoarthritis, right hip; E78.5 Hyperlipidemia, unspecified; Z90.710 Acquired absence of both cervix and uterus; Z79.51 Long term (current) use of inhaled steroids; M87.9 Osteonecrosis, unspecified; F03.90 Unspecified dementia, unspecified severity, without behavioral disturbance, psychotic disturbance, mood disturbance, and anxiety; Z96.649 Presence of unspecified artificial hip joint
CPT/HCPCS: 20610; 73502; 73700; 77002; 80053; 82948; 82962; 85025; 96372; 96374; 97110; 97116; 97161; 97530; 99285; A4646; G0378; G8987; G8988; J1644; J2405; J2795; J3301; Q9949; Q9967